=== PATIENT | female | born 1945 | race Caucasian/White ===

== ENCOUNTER → 2021-02-01 | Outpatient (CLI) | payer OTHER ==
[~2021-02-01] MED LIST: ALBUTEROL SULF8.5 GM; ALIGN4 MG OR; B12INJ; CENTRUM SILVER1 EAC2; ELOCON15 GM; EPIPEN 2-P0.3 MG/0.3; ESTRADIOL 1 MG T1 M1 VAG; LEVOTHYROXINE0.05 MG; MIRALAX17 GM; NASACORT10.8 ML; QVAR8.7 G1; RECLAST 55 MG/1002; REGLAN 10 MG TA10 MG PO; calcium PO
== END ==
LOC: CAT 11:59
PROVIDERS: ATTEND Internal Medicine Cardiovascular Disease
DX: Z13.6 Encounter for screening for cardiovascular disorders (principal); I25.10 Atherosclerotic heart disease of native coronary artery without angina pectoris; E78.00 Pure hypercholesterolemia, unspecified

== ENCOUNTER → 2021-02-01 | Outpatient (CLI) | payer OTHER, MEDICARE | LOC: SJCVC 11:31 | PROVIDERS: ATTEND Internal Medicine Cardiovascular Disease | DX: R00.2 Palpitations (principal); E03.9 Hypothyroidism, unspecified; R53.83 Other fatigue; E78.2 Mixed hyperlipidemia; J45.909 Unspecified asthma, uncomplicated; F41.9 Anxiety disorder, unspecified; R79.89 Other specified abnormal findings of blood chemistry; Z88.2 Allergy status to sulfonamides; Z88.6 Allergy status to analgesic agent; Z88.5 Allergy status to narcotic agent; Z79.899 Other long term (current) drug therapy ==

== ENCOUNTER → 2021-02-08 | Outpatient (CLI) | payer OTHER, MEDICARE | LOC: SJCVCIMAG 11:53 | PROVIDERS: ATTEND Internal Medicine Cardiovascular Disease | DX: I34.0 Nonrheumatic mitral (valve) insufficiency (principal); I34.1 Nonrheumatic mitral (valve) prolapse ==